=== PATIENT | female | born 1945 | race Caucasian/White ===

== ENCOUNTER 2019-01-12 15:03 | Observation (INO) ==
[2019-01-12] MEDS ORDERED: ONDANSETRON 4 MG/2 ML VIAL IV PRN (17:23)
[2019-01-12] MEDS ORDERED: ACETAMINOPHEN 325 MG TABLET PO PRN (17:23)
[2019-01-12 19:31] LABS: Calcium 8.7 MG/DL (8.5-10.1); Osmolality,Calculated 280.4 MOS/KG (273-304)
[2019-01-12] MEDS: SODIUM CHLORIDE 0.9% 1,000 ML IV SCH (21:21)
[2019-01-12] MEDS: ENOXAPARIN 30 MG/0.3 ML SYRINGE SUBCUT SCH (21:21)
[2019-01-12 21:27] LABS: Apearance,Urine CLEAR (Clear); Bilirubin,Urine Negative (Negative); Blood, Urine Moderate mg/dL (Negative); Glucose,Urine (UA) Negative (Negative); Ketones,Urine Negative (Negative); Nitrite,Urine Negative (Negative); Protein,Urine Negative; RBC,Urine 2 /HPF (0-4); Urine Color Straw (Yellow); Urine Specific Gravity 1.006 (1.001-1.035); Urine Urobilinogen < 2.0 EU/DL (0.2-1.0); WBC,Urine 1 /HPF (0-6)
[2019-01-13 05:55] LABS: Basophils % 0.4 % (0.0-0.8); Eosinophils # 0.1 10*3/uL (0.0-0.87); Eosinophils % 1.3 % (0.00-10.9); Hematocrit 38.3 VOL% (35.7-47.0); Hemoglobin 12.7 GM/DL (12.0-16.0); Immature Granulocytes % 0.4 %; Immature Granulocytes Absolute 0.03 #; Lymphocytes # 2.3 10*3/uL (1.4-4.0); Lymphocytes % 28.7 % (21.3-54.2); Mean Corpuscular HGB Conc 33.2 GM/DL (32-36); Mean Corpuscular Volume 93.4 FL (87-102); Mean Platelet Volume 9.8 FL (9.6-12.0); Monocytes % 9.1 % (1.7-12.7); Neutrophils % 60.1 % (38.7-73.9); Platelet Count 244 T/CUMM (130-400); White Blood Count 8.2 T/CUMM (4-12)
[2019-01-13 06:20] LABS: Calcium 8.6 MG/DL (8.5-10.1); Osmolality,Calculated 281.1 MOS/KG (273-304)
[2019-01-13 06:32] LABS: Risk Ratio 2.65; Thyroid Stimulating Hormone 1.17 uIU/ml (0.358-3.74); VLDL CHOLESTEROL 17.8 MG/DL
[2019-01-13] MEDS: PANTOPRAZOLE 40 MG TABLET PO SCH (08:05)
[2019-01-13] MEDS: ASPIRIN CHEW 81 MG TABLET PO SCH (08:05)
[2019-01-13] MEDS: SODIUM CHLORIDE 0.9% 1,000 ML IV SCH (10:10)
[2019-01-13] MEDS: ENOXAPARIN 30 MG/0.3 ML SYRINGE SUBCUT SCH (20:47)
[2019-01-14 04:27] LABS: Basophils % 0.3 % (0.0-0.8); Eosinophils # 0.2 10*3/uL (0.0-0.87); Eosinophils % 2.6 % (0.00-10.9); Hemoglobin 12.8 GM/DL (12.0-16.0); Immature Granulocytes % 0.2 %; Immature Granulocytes Absolute 0.01 #; Lymphocytes # 3.2 10*3/uL (1.4-4.0); Lymphocytes % 52.1 % (21.3-54.2); Mean Corpuscular HGB Conc 32.8 GM/DL (32-36); Mean Corpuscular Volume 94.2 FL (87-102); Mean Platelet Volume 9.9 FL (9.6-12.0); Monocytes % 13.1 % (1.7-12.7); Neutrophils % 31.7 % (38.7-73.9); Platelet Count 241 T/CUMM (130-400); Red Blood Count 4.14 MC/CUMM (3.8-5.5); White Blood Count 6.1 T/CUMM (4-12)
[2019-01-14 04:55] LABS: Albumin 2.8 G/DL (3.4-5.0); Bilirubin,Total 0.6 MG/DL (0.2-1.0); Total Protein 6.6 G/DL (6.4-8.3)
[2019-01-14 05:17] LABS: Band Neutrophils 3 % (0-10); Eosinophils 3 % (0-10); Lymphocytes 46 % (20-55); Segmented Neutrophils 39 % (50-85)
[2019-01-14 05:18] LABS: Total Cells Counted 100
[2019-01-14 05:19] LABS: Platelet Estimate Normal
[2019-01-14] MEDS: ASPIRIN CHEW 81 MG TABLET PO SCH (09:05)
[2019-01-14] MEDS: PANTOPRAZOLE 40 MG TABLET PO SCH (09:05)
[2019-01-14 12:09] VITALS: BP 110/62
== END 2019-01-14 12:10 | disposition home or self-care (01) ==
LOC: N.4E → SUATTDRO 16:31
PROVIDERS: ADMIT Internal Medicine; ATTEND Internal Medicine